=== PATIENT | female | born 1965 | race Caucasian/White ===

== ENCOUNTER 2016-07-12 11:39 | Emergency (ER) | payer SELFPAY ==
[~2016-07-12] VITALS: Ht 177.8 cm; Wt 99.7 kg
[~2016-07-12 11:39] MED LIST: ALEVE220 MG PO; ANTI INFLAMATORY; FLEXERIL5 MG PO; INDOCIN50 MG PO; NOHOMEMEDS; TRAMADOL HCL50 MG PO
[2016-07-12 11:51] VITALS: BP 144/10
[2016-07-12] MEDS ORDERED: AMOXICILLIN875 MG PO (13:32)
[2016-07-12] MEDS ORDERED: MOTRIN800 MG PO (13:32)
[2016-07-12] MEDS ORDERED: WOMEN'S BIOMUL1 EACH PO (13:41)
== END 2016-07-12 13:38 | disposition home or self-care (01) ==
LOC: EME 11:39
DX: H66.41 Suppurative otitis media, unspecified, right ear (principal); J02.9 Acute pharyngitis, unspecified
CPT/HCPCS: 99281; 99284

== ENCOUNTER 2016-07-16 15:59 | Emergency (ER) | payer SELFPAY ==
[~2016-07-16] VITALS: Ht 177.8 cm; Wt 100.4 kg
[~2016-07-16 15:59] MED LIST changes: +AMOXICILLIN875 MG PO; +MOTRIN800 MG PO; +WOMEN'S BIOMUL1 EACH PO
[2016-07-16] MEDS ORDERED: KEFLEX500 MG PO (18:28)
[2016-07-16 18:36] VITALS: BP 124/84
== END 2016-07-16 18:36 | disposition home or self-care (01) ==
LOC: EME 15:59
DX: H65.91 Unspecified nonsuppurative otitis media, right ear (principal)
CPT/HCPCS: 99281; 99283